=== PATIENT | female | born 1990 | race African-American/Black ===

== ENCOUNTER 2017-06-18 18:17 | Emergency (ER) | payer OTHER ==
--- NOTE | ~2017-06-18 | US85 ---
[facility] A Service [facility] RADIOLOGY TEXT RESULTS PATIENT: AUDRA RODRIGUEZ LOCATION: SED : [birth year] UNIT #: [id number] AGE: [address]: Viktoriya Olvera APRN SEX: F ORDER DR: [id number] [address] [id number] MR#: [id number] Acc #: [id number] NAME: AUDRA RODRIGUEZ : 1990 SEX: F STUDY DATE/TIME: 06/18/2017 19:18 UNIT: SED ROOM: STUDY DESCRIPTION: [facility] [place] [facility] [employer] Attending Physician: Viktoriya Olvera A.P.R.N. Ordering Physician: Viktoriya Car A.P.R.N. Primary Care Physician: [facility] MEDICAL IMAGING REPORT This report is preliminary unless electronic signature is present. EXAM Right lower extremity venous Doppler. HISTORY Right extreme pain and swelling x1 day. Patient is status post right lower extremity surgery 1 week ago. Fractured tibia with ari placement. TECHNIQUE Venous ultrasound examination of the right lower extremity was performed using grayscale, spectral Doppler and color flow Doppler imaging. FINDINGS The examination is negative. There is no evidence of right lower extremity deep venous thrombus from the groin to the lower calf. Visualized greater saphenous vein is also patent. IMPRESSION Negative examination. No evidence of right lower extremity deep venous thrombosis. Dictated by... Kendall Bolden M.D. THIS IS AN ELECTRONICALLY VERIFIED REPORT Kendall Bolden M.D. at 06/19/2017 6:54 PM RDS/jonathan TD: 06/19/2017 04:11 JOB #: [id number] [facility] A Service [facility] RADIOLOGY TEXT RESULTS PATIENT: AUDRA RODRIGUEZ LOCATION: SED : [birth year] UNIT #: [id number] AGE: [address]: Viktoriya Olvera APRN SEX: F ORDER DR: MEDICAL IMAGING REPORT Page 1 of 1
[~2017-06-18 18:17] MED LIST: AMOXICILLIN500 M1 PO; BENADRYL25 MG PO; DOCUSATE SODIU100 MG PO; FLEXERIL10 MG PO; IBUPROFEN800 MG PO; LORTAB 5-325 M1 EACH PO; MACROBID100 M1 PO; NAPROXEN500 M1 PO; NO MEDICATIONS; PHENERGAN25 MG PO; PREDNISONE10 MG PO; ROBAXIN 750750 M1 PO; TYLENOL325 M1 PO
[2017-06-18] MEDS ORDERED: HYDROCODON-ACE1 EAC7 PO (18:29)
== END 2017-06-18 20:16 | disposition home or self-care (01) ==
LOC: SED 18:17
DX: M79.604 Pain in right leg (principal); J45.909 Unspecified asthma, uncomplicated; F17.210 Nicotine dependence, cigarettes, uncomplicated; Z88.2 Allergy status to sulfonamides; Z88.1 Allergy status to other antibiotic agents
CPT/HCPCS: 93971; 99283